=== PATIENT | male | born 1980 | race Caucasian/White ===

== ENCOUNTER 2018-08-11 16:56 | Emergency (ER) | payer BC | END 2018-08-11 19:32 | disposition home or self-care (01) | LOC: FTE 16:56 | DX: L73.9 Follicular disorder, unspecified (principal) | CPT/HCPCS: 99283; Z7502 ==

== ENCOUNTER 2018-09-15 17:14 | Emergency (ER) | payer BC | END 2018-09-15 20:50 | disposition home or self-care (01) | LOC: FTE 17:14 | DX: F41.9 Anxiety disorder, unspecified (principal); J30.9 Allergic rhinitis, unspecified | CPT/HCPCS: 99283; Z7502 ==

== ENCOUNTER 2018-10-16 16:53 | Emergency (ER) | payer BC ==
[2018-10-16] MEDS: IBUPROFEN 800 MG TAB PO (20:08)
== END 2018-10-16 23:06 | disposition home or self-care (01) ==
LOC: E/R 16:53
DX: R07.9 Chest pain, unspecified (principal)
CPT/HCPCS: 71045; 93005; 99284-25

== ENCOUNTER 2019-01-29 10:09 | Day surgery (SDC) | payer BC ==
[2019-01-29] MEDS ORDERED: MIDAZOLAM 1 MG/ML 2 ML INJ ×3 (12:33→12:34)
[2019-01-29] MEDS ORDERED: FENTAnyl 50 MCG/ML VIAL (12:33)
== END 2019-01-29 12:45 | disposition home or self-care (01) ==
LOC: GIL 10:09
DX: K29.60 Other gastritis without bleeding (principal); K64.8 Other hemorrhoids
CPT/HCPCS: 43239; 87177; 88305